=== PATIENT | female | born 1950 | race Caucasian/White ===

== ENCOUNTER 2016-10-26 12:47 | Emergency (ER) | payer MEDICARE, BC ==
[2016-10-26] MEDS ORDERED: Albuterol/Ipratropium 3.0-0.5 MG/3 ML Neb Soln NEB ONE (13:05)
[2016-10-26] MEDS ORDERED: diphenhydrAMINE 50 MG Cap PO ONE (13:13)
[2016-10-26 14:15] VITALS: BP 149/80
--- NOTE | 2016-10-27 11:41 | ER ---
DATE SEEN: 10/26/2016 TIME SEEN: The patient was seen at 1300 hours. CHIEF COMPLAINT: Shortness of breath. 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 The office is an old building and has extensive mold in the basement. She has noted increased shortness of breath last week and on and off for the last 6 months. She noted 6 months ago, she had eczema and she was told by the outside sales executive it was related to an infection, possibly fungal infection. She notes she has had on and off problems with her lungs for the last 2 years. She has been working at this microfilm operator's office for 4 years. 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 She was exposed to a lot of dust. More recently, on 10/21/2016, she was started on prednisone because of lung involvement. The MD thought she had a flare in her allergies. She has mild nasal congestion. The patient has "hay fever" which she notes occurs when she smells roses and lilacs and gets exposed to thimerosal intranasally. Her "hay fever" manifests itself as "increased shortness of breath." She has never had asthma. No recent coughing. The patient denies dyspnea on exertion except when she walks a long distance, walks fast, or goes up the stairs. She noted today when she was lifting a laundry basket; bending over and lifting it up, she got short of breath. No recent fevers. No productive cough. No chest pain. No irregular heartbeat. No heart attack. No previous history of myocardial infarction, hypertension, or other serious illnesses. REVIEW OF SYSTEMS: Otherwise, negative except for noted above. MEDICATIONS: 1. Zyrtec daily year round. 2. Multivitamins. 3. She had recently started prednisone 10/21/2016, 20 mg a day. ALLERGIES: Erythromycin, penicillin, and tetracycline. PHYSICAL EXAMINATION: VITAL SIGNS: Blood pressure 149/80, heart rate 92, respirations 18, and oxygen saturation 92%. With exertion, the oxygen saturation does go down to 89% with minimal exertion in the room. BMI is 27.0 kg/m2. GENERAL: A pleasant woman appropriately dressed, in no acute distress. Well muscled and well nourished. HEENT: Without abnormality. TMs negative. Pharynx without abnormality. NECK: Supple. No thyromegaly. No masses in neck. No cervical adenopathy. Transient, trace jugular venous distention. It is not persistent and is only noted when she lays down and semi-elevates her neck and chest. LUNGS: No intercostal retraction. No accessory muscle use. Rales in the bases posterior and inferior one half of the right and left lung base. Occasional rales in anterior lung bases. HEART: S1, S2. No murmur. No irregular rate or rhythm. ABDOMEN: Soft. No guarding. No hepatosplenomegaly. EXTREMITIES: Without edema. NEUROLOGIC: Not performed. The patient is alert and strength in upper and lower extremities. IMAGING: Chest x-ray reveals infiltrates, fibrous stranding left and right lung bases. Heart is slightly increased size. LABORATORY STUDIES: White count 10,500, PMNs 84, lymphocytes 13, monos 3, platelets 146,000, and hemoglobin 14.5. D-dimer is slightly elevated at 431 (for age is not elevated and could be considered normal), BUN and creatinine ratio is slightly increased 24 with a GFR greater than 60 and glucose 154. AST trace elevated at 31 and ALT 46. Troponin less than 0.01. ASSESSMENT: 1. The patient probably has a fungal mediated infiltrate and/or bacterial infiltrate. Plan is to treat her with Levaquin 500 mg daily for 10 days. Prescription written. If it does not get better, consider fungal workup. At this point, she has a fungal blood test to screen for Aspergillus, coccidioidomycosis, histoplasmosis, and blastomycosis. Culture results pending. She has allergy history. 2. She has nasal turbinate swelling moderate and also mild shiners all suggesting a allergic mediated process. 3. No evidence for sinusitis presently on clinical examination. No tenderness of sinuses maxillary or frontal. 4. Allergies to erythromycin, penicillin, and tetracycline. 5. History of eczema in the past and was seen by a outside sales executive. PLAN: 1. Treat empirically for potential infection even though she has minimally elevated white count. Use Levaquin 500 mg 1 tablet daily 10 tablets. 2. Follow up with doctor in a week. 3. If she has respiratory symptoms that are not improved, then consider Pulmonology consultation. She may need EGD endoscopy and or bronchoscopy/ culture of the lungs if pulm,onary process not get better. 4. I did not do a TB skin test. Probability of TB is low, but may need to be considered if she does not improved or returns next week for the same symptoms. 5. Mildly overweight. 6. Mild hyperglycemia. 7. Negative troponin. No evidence for myocardial ischemia. 8. Neutrophilic leukocytosis. The patient also given prescription in addition to Levaquin for 10 days, a prescription for Florastor. She currently uses [id number] probiotics and she can use these - does not need to use the Florastar prescription. /[id number] [address]
--- NOTE | 2016-10-30 13:54 | CR ---
INDICATION: Short of breath with exertion x1 week, probably allergy mediated. CHEST: Two PA views and a lateral view of the chest were obtained 10/26/2016. No comparisons were available. A poor inspiration is noted. Patchy infiltration is scattered throughout the lungs, predominantly in the mid to lower lung rviera and may be on the basis of a process such as aspiration pneumonia or other pneumonia. Fibrosis could also be present. No gross consolidating pneumonia or large effusion could be identified. The heart did not appear enlarged. The aorta is only minimally tortuous. Dextroconvex scoliosis of the upper middle thoracic spine is noted. Demineralization of the spine is suggested, compatible with osteoporosis and should be correlated clinically. IMPRESSION: 1. Cannot exclude pneumonia, possibly aspiration, and/or fibrosis. 2. Osteoporosis. 3. Scoliosis. MTDD
--- NOTE | 2016-11-14 11:58 | ER ---
DATE SEEN: 10/26/2016 LABORATORY DATA: The patient had fungal studies for coccidioidomycosis, blastomycosis, Aspergillus, and histoplasmosis. All these tests were performed by complement fixation. Fungal antibody by complement fixation less than 1:2. A titer as low as 1:2 may indicate past infection or self-limited disease. As long as it is not greater than or equal to 1:32, there is no suggestion of disseminated infection. Blastomycosis antibody by complement fixation, the patient's test result less than 1:8. Less than 40% of patients have positive test when active disease is present. Cross reactions occur between histoplasmosis and coccidioidomycosis. Conclusion: Antibody titer not abnormal. Histoplasmosis antibody by complement fixation, the patient's test was less than 1:8. Reference range is less than 1:8. This is considered low titer and not abnormal. Aspergillus by complement fixation, the test result less than 1:8. Negative test does not exclude infection in immunocompromised patients. If necessary, repeat test in 3 weeks. CONCLUSION: All these tests for coccidioidomycosis, blastomycosis, histoplasmosis, and Aspergillus are negative. CONCLUSION: No clear evidence for fungal disease as a cause of the patient's pulmonary symptoms. /[id number] [address] [facility]
== END 2016-10-26 14:45 | disposition home or self-care (01) ==
LOC: FB.ED 12:47
DX: R91.8 Other nonspecific abnormal finding of lung field (principal); E66.3 Overweight; R73.9 Hyperglycemia, unspecified; D72.828 Other elevated white blood cell count; Z79.899 Other long term (current) drug therapy; Z88.0 Allergy status to penicillin; Z88.1 Allergy status to other antibiotic agents
CPT/HCPCS: 36415; 71020; 80053; 84484; 85025; 85379; 86606; 86612; 86635; 86698; 94664; 99283; A9270; J7620

== ENCOUNTER 2018-08-04 15:41 | Inpatient (IN) | payer MEDICARE, BC ==
--- NOTE | 2018-08-04 16:16 | EDM.PDOC ---
ED HPI GENERAL MEDICAL PROBLEM - General Stated Complaint: TROUBLE BREATHING Time Seen by Provider: 08/04/18 15:45 Source of Information: Reports: Patient, Family History Limitations: Reports: No Limitations - History of Present Illness INITIAL COMMENTS - FREE TEXT/NARRATIVE: c/o sob x 1w went to [facility] 7d ago, saw Karli with c/o sob and new onset rhinorrhea, tx Ceftin without benefit, returned 2d ago and changed to Cefdinir still with rhinorrhea, does not think she has had a f/c/d has interstitial pul fibrosis, on no HFA, no nebs, on home O2 at nite since Dec master certified rv technician is Dr Ortiz, last saw 2w ago, has appointment in September at September for a 2nd opinion lives alone, dtr came for a visit today and pt "was blue" with PO in 70s and RR 30 PO 89% on 2 l/min here, inc'd to 93% on 4 l/min still feeling weak, no pain denies prior CV problems - Related Data Allergies Allergy/AdvReac Type Severity Reaction Status Date / Time erythromycin base Allergy Respiratory Verified 08/04/18 16:59 Distress Penicillins Allergy Respiratory Verified 08/04/18 16:59 Distress Tetracyclines Allergy Respiratory Verified 08/04/18 16:59 Distress Home Meds: Home Meds Cetirizine HCl/Pseudoephedrine [ZyrTEC-D] 1 tab PO Q12H 10/26/16 [History] Multivitamin [Multivitamins] 1 each PO DAILY 10/26/16 [History] Cefdinir [Omnicef] 300 mg PO Q12HR 08/04/18 [History] Fluticasone Propionate [Flonase Allergy Relief] 9.9 ml NS ASDIRECTED 08/04/18 [ History] predniSONE [Prednisone] 5 mg PO DAILY 08/04/18 [History] ED ROS GENERAL - Review of Systems Review Of Systems: See Below Constitutional: Reports: No Symptoms HEENT: Reports: No Symptoms Respiratory: Reports: Shortness of Breath Cardiovascular: Reports: No Symptoms Endocrine: Reports: No Symptoms GI/Abdominal: Reports: No Symptoms : Reports: No Symptoms Musculoskeletal: Reports: No Symptoms Skin: Reports: No Symptoms Neurological: Reports: No Symptoms Psychiatric: Reports: No Symptoms Hematologic/Lymphatic: Reports: No Symptoms Immunologic: Reports: No Symptoms ED EXAM, GENERAL - Physical Exam Exam: See Below Exam Limited By: No Limitations General Appearance: Alert, WD/WN, Mild Distress Ears: Normal External Exam Nose: Normal Inspection, Normal Mucosa, No Blood Throat/Mouth: Normal Inspection, Normal Lips, Normal Teeth, Normal Gums, Normal Oropharynx, Normal Voice, No Airway Compromise Head: Atraumatic, Normocephalic Neck: Normal Inspection, Supple, Non-Tender, Full Range of Motion Respiratory/Chest: Other (fair AE, symmetric, rales at L mid lung posteriorly, no true wheeze, no inc'd exp phase, talks 6-8 word sentences with just slight dyspnea, no cough observed, no retractions, using accessory muscles) Cardiovascular: Regular Rate, Rhythm, No JVD, No Murmur, No Rub GI/Abdominal: Soft, Non-Tender, No Distention Back Exam: Normal Inspection, Full Range of Motion, NT Extremities: Normal Inspection, Normal Range of Motion, Non-Tender, No Pedal Edema Neurological: Alert, Oriented, CN II-XII Intact, Normal Cognition, No Motor/ Sensory Deficits Psychiatric: Normal Affect, Normal Mood Skin Exam: Warm, Dry, Intact, Normal Color, No Rash Lymphatic: No Adenopathy Course - Vital Signs Last Recorded V/S: Last Vital Signs Temp 36.5 C 08/04/18 15:41 Pulse 114 H 08/04/18 15:41 Resp 20 08/04/18 15:41 BP 146/75 H 08/04/18 15:41 Pulse Ox 93 L 08/04/18 15:41 - Orders/Labs/Meds Orders: Active Orders 24 hr Category Date Time Status Admission Status [Patient Status] [ADT] Routine ADT 08/04/18 17:18 Ordered EKG Documentation Completion [RC] ASDIRECTED Care 08/04/18 16:08 Ordered Chest 2V [CR] Stat Exams 08/04/18 16:06 Ordered EKG 12 Lead [EK] Routine Ther 08/04/18 16:06 Ordered Labs: Laboratory Tests 08/04/18 08/04/18 08/04/18 Range/Units 16:20 16:20 16:20 WBC 14.3 H (4.5-12.0) X10-3/uL RBC 4.65 (3.23-5.20) x10(6)uL Hgb 14.5 (11.5-15.5) g/dL Hct 42.7 (30.0-51.3) % MCV 91.7 (80-96) fL MCH 31.1 (27.7-33.6) pg MCHC 33.9 (32.2-35.4) g/dL RDW 11.2 L (11.5-15.5) % Plt Count 475 H (125-369) X10(3)uL MPV 6.8 L (7.4-10.4) fL Neut % (Auto) 78.2 (46-82) % Lymph % (Auto) 8.5 L (13-37) % [place] % (Auto) 9.1 (4-12) % Eos % (Auto) 3 (1.0-5.0) % Baso % (Auto) 1 (0-2) % Neut # (Auto) 11.2 H (1.6-8.3) # Lymph # (Auto) 1.2 (0.6-5.0) # [place] # (Auto) 1.3 (0.0-1.3) # Eos # (Auto) 0.4 (0.0-0.8) # Baso # (Auto) 0.2 (0.0-0.2) # POC VBG pH POC VBG pCO2 POC VBG HCO3 POC VBG Total CO2 POC VBG Base Excess Sodium 137 (135-145) mmol/L Potassium 4.2 (3.5-5.3) mmol/L Chloride 98 L (100-110) mmol/L Carbon Dioxide 28 (21-32) mmol/L BUN 18 (7-18) mg/dL Creatinine 0.7 (0.55-1.02) mg/dL Est Cr Clr Drug Dosing TNP Estimated GFR (MDRD) > 60 (>60) BUN/Creatinine Ratio 25.7 H (9-20) Glucose 111 (80-116) mg/dL Calcium 9.1 (8.6-10.2) mg/dL Total Bilirubin 0.5 (0.1-1.3) mg/dL AST 31 H (5-25) IU/L ALT 39 H (12-36) U/L Alkaline Phosphatase 96 (56-112) IU/L Troponin I < 0.017 L (<0.017-0.056) ng/mL C-Reactive Protein 16.8 H* (0.5-0.9) mg/dL NT-Pro-B Natriuret Pep (<=125) pg/mL Total Protein 7.8 (6.0-8.0) g/dL Albumin 3.4 (3.2-4.6) g/dL Globulin 4.4 g/dL Albumin/Globulin Ratio 0.8 Urine Color (YELLOW) Urine Appearance (CLEAR) Urine pH (5.0-6.5) Ur Specific [place] (1.010-1.025) Urine Protein (NEGATIVE) mg/dL Urine Glucose (UA) (NORMAL) mg/dL Urine Ketones (NEGATIVE) mg/dL Urine Occult Blood (NEGATIVE) Urine Nitrite (NEGATIVE) Urine Bilirubin (NEGATIVE) Urine Urobilinogen (NEGATIVE) mg/dL Ur Leukocyte Esterase (NEGATIVE) Urine RBC (0-5) Urine WBC (0-5) Ur Squamous Epith Cells (NS,R,O) Urine Bacteria (NS) Hyaline Casts (NS) Urine Mucus (NS) 08/04/18 08/04/18 08/04/18 Range/Units 16:20 16:20 16:28 WBC (4.5-12.0) X10-3/uL RBC (3.23-5.20) x10(6)uL Hgb (11.5-15.5) g/dL Hct (30.0-51.3) % MCV (80-96) fL MCH (27.7-33.6) pg MCHC (32.2-35.4) g/dL RDW (11.5-15.5) % Plt Count (125-369) X10(3)uL MPV (7.4-10.4) fL Neut % (Auto) (46-82) % Lymph % (Auto) (13-37) % [place] % (Auto) (4-12) % Eos % (Auto) (1.0-5.0) % Baso % (Auto) (0-2) % Neut # (Auto) (1.6-8.3) # Lymph # (Auto) (0.6-5.0) # [place] # (Auto) (0.0-1.3) # Eos # (Auto) (0.0-0.8) # Baso # (Auto) (0.0-0.2) # POC VBG pH Cancelled 7.38 POC VBG pCO2 Cancelled 36.9 L POC VBG HCO3 Cancelled 21.8 L POC VBG Total CO2 Cancelled 23 L POC VBG Base Excess Cancelled -3 L Sodium (135-145) mmol/L Potassium (3.5-5.3) mmol/L Chloride (100-110) mmol/L Carbon Dioxide (21-32) mmol/L BUN (7-18) mg/dL Creatinine (0.55-1.02) mg/dL Est Cr Clr Drug Dosing Estimated GFR (MDRD) (>60) BUN/Creatinine Ratio (9-20) Glucose (80-116) mg/dL Calcium (8.6-10.2) mg/dL Total Bilirubin (0.1-1.3) mg/dL AST (5-25) IU/L ALT (12-36) U/L Alkaline Phosphatase (56-112) IU/L Troponin I (<0.017-0.056) ng/mL C-Reactive Protein (0.5-0.9) mg/dL NT-Pro-B Natriuret Pep 142 H (<=125) pg/mL Total Protein (6.0-8.0) g/dL Albumin (3.2-4.6) g/dL Globulin g/dL Albumin/Globulin Ratio Urine Color (YELLOW) Urine Appearance (CLEAR) Urine pH (5.0-6.5) Ur Specific [place] (1.010-1.025) Urine Protein (NEGATIVE) mg/dL Urine Glucose (UA) (NORMAL) mg/dL Urine Ketones (NEGATIVE) mg/dL Urine Occult Blood (NEGATIVE) Urine Nitrite (NEGATIVE) Urine Bilirubin (NEGATIVE) Urine Urobilinogen (NEGATIVE) mg/dL Ur Leukocyte Esterase (NEGATIVE) Urine RBC (0-5) Urine WBC (0-5) Ur Squamous Epith Cells (NS,R,O) Urine Bacteria (NS) Hyaline Casts (NS) Urine Mucus (NS) 08/04/18 Range/Units 16:51 WBC (4.5-12.0) X10-3/uL RBC (3.23-5.20) x10(6)uL Hgb (11.5-15.5) g/dL Hct (30.0-51.3) % MCV (80-96) fL MCH (27.7-33.6) pg MCHC (32.2-35.4) g/dL RDW (11.5-15.5) % Plt Count (125-369) X10(3)uL MPV (7.4-10.4) fL Neut % (Auto) (46-82) % Lymph % (Auto) (13-37) % [place] % (Auto) (4-12) % Eos % (Auto) (1.0-5.0) % Baso % (Auto) (0-2) % Neut # (Auto) (1.6-8.3) # Lymph # (Auto) (0.6-5.0) # [place] # (Auto) (0.0-1.3) # Eos # (Auto) (0.0-0.8) # Baso # (Auto) (0.0-0.2) # POC VBG pH POC VBG pCO2 POC VBG HCO3 POC VBG Total CO2 POC VBG Base Excess Sodium (135-145) mmol/L Potassium (3.5-5.3) mmol/L Chloride (100-110) mmol/L Carbon Dioxide (21-32) mmol/L BUN (7-18) mg/dL Creatinine (0.55-1.02) mg/dL Est Cr Clr Drug Dosing Estimated GFR (MDRD) (>60) BUN/Creatinine Ratio (9-20) Glucose (80-116) mg/dL Calcium (8.6-10.2) mg/dL Total Bilirubin (0.1-1.3) mg/dL AST (5-25) IU/L ALT (12-36) U/L Alkaline Phosphatase (56-112) IU/L Troponin I (<0.017-0.056) ng/mL C-Reactive Protein (0.5-0.9) mg/dL NT-Pro-B Natriuret Pep (<=125) pg/mL Total Protein (6.0-8.0) g/dL Albumin (3.2-4.6) g/dL Globulin g/dL Albumin/Globulin Ratio Urine Color Yellow (YELLOW) Urine Appearance Clear (CLEAR) Urine pH 5.0 (5.0-6.5) Ur Specific [place] 1.020 (1.010-1.025) Urine Protein Trace (NEGATIVE) mg/dL Urine Glucose (UA) Normal (NORMAL) mg/dL Urine Ketones 150 H (NEGATIVE) mg/dL Urine Occult Blood Trace (NEGATIVE) Urine Nitrite Negative (NEGATIVE) Urine Bilirubin Small H (NEGATIVE) Urine Urobilinogen Normal (NEGATIVE) mg/dL Ur Leukocyte Esterase Negative (NEGATIVE) Urine RBC 0-5 (0-5) Urine WBC 0-5 (0-5) Ur Squamous Epith Cells Moderate H (NS,R,O) Urine Bacteria Few H (NS) Hyaline Casts Few H (NS) Urine Mucus Few H (NS) - Re-Assessments/Exams Free Text/Narrative Re-Assessment/Exam: 08/04/18 17:28 CxR with infiltrate in L med lung field, same location as the rales WBC 14.3, plt 475 and CRP 16, all c/w infection BNP 142 c/w heart strain, EKG with ST 112, old IWMI, no comparison echo Jan 2017 with LV diastolic dysfunction Grade 1, EF 50-55%, normal wall function, normal RV systolic function labs and XR and PE all c/w pneumonia will change antbx to Zosyn and vanco to cover Pseudomonas, MRSA and anaerobes dtr agrees to admission, pt reluctantly agrees Departure - Departure Time of Disposition: 17:32 Disposition: DC/Tfer to Acute Hospital 02 Condition: Fair Clinical Impression: Left lower lobe pneumonia, Leukocytosis, Elevated brain natriuretic peptide ( BNP) level, Elevated C-reactive protein (CRP), Sinus tachycardia - Discharge Information *PRESCRIPTION DRUG MONITORING PROGRAM REVIEWED*: Not Applicable *COPY OF PRESCRIPTION DRUG MONITORING REPORT IN PATIENT REBECCA: Not Applicable Referrals: Jossy Borges PRIMARY SUBSTANCE ABUSE COUNSELOR [Primary Care Provider] - - My Orders Last 24 Hours: My Active Orders 08/04/18 16:06 Chest 2V [CR] Stat EKG 12 Lead [EK] Routine 08/04/18 16:08 EKG Documentation Completion [RC] ASDIRECTED 08/04/18 17:18 Admission Status [Patient Status] [ADT] Routine - Assessment/Plan Last 24 Hours: My Active Orders 08/04/18 16:06 Chest 2V [CR] Stat EKG 12 Lead [EK] Routine 08/04/18 16:08 EKG Documentation Completion [RC] ASDIRECTED 08/04/18 17:18 Admission Status [Patient Status] [ADT] Routine
[2018-08-04] MEDS ORDERED: Acetaminophen 325 MG Tab PO PRN (17:36)
[2018-08-04] MEDS ORDERED: Ondansetron 4 MG/2 ML SDV IV PRN (17:36)
[2018-08-04] MEDS ORDERED: Ibuprofen 600 MG Tab PO PRN (17:36)
[2018-08-04] MEDS ORDERED: Magnesium Hydroxide 400 MG/5 ML Susp 30 ML Cup PO PRN (17:36)
[2018-08-04] MEDS ORDERED: Zolpidem 5 MG Tab PO PRN (17:36)
[2018-08-04] MEDS ORDERED: [UNRECOGNIZED DRUG - REMARK] NS SCH (18:00)
[2018-08-04] MEDS ORDERED: Levofloxacin 750 MG Tab PO SCH (18:15)
[2018-08-04] MEDS: Enoxaparin 40 MG/0.4 ML Syringe SUBCUT SCH (18:31)
[2018-08-04] MEDS: Albuterol 0.083% 2.5 MG/3 ML Neb Soln NEB SCH (18:31)
[2018-08-04] MEDS: methylPREDNISolone Sodium Succinate 125 MG/2 ML SDV IVPUSH SCH (18:31)
[2018-08-04] MEDS ORDERED: Vancomycin 1 GM SDV ONE (19:11)
[2018-08-04] MEDS: Sodium Chloride 0.9% 10 ML Syringe FLUSH PRN ×2 (19:13→21:52)
[2018-08-04] MEDS: Saccharomyces Boulardii (Probiotic) 250 MG Cap PO SCH (21:04)
[2018-08-05] MEDS: Albuterol 0.083% 2.5 MG/3 ML Neb Soln NEB SCH ×4 (00:17→18:07)
[2018-08-05] MEDS: methylPREDNISolone Sodium Succinate 125 MG/2 ML SDV IVPUSH SCH ×3 (01:06→18:06)
[2018-08-05] MEDS: Sodium Chloride 0.9% 10 ML Syringe FLUSH PRN ×2 (01:08→06:52)
[2018-08-05] MEDS ORDERED: Vancomycin 1 GM SDV ONE (06:33)
[2018-08-05] MEDS: Saccharomyces Boulardii (Probiotic) 250 MG Cap PO SCH (08:40)
[2018-08-05] MEDS ORDERED: Multivitamin Tab PO SCH (09:00)
--- NOTE | 2018-08-05 10:42 | CR ---
INDICATION: Shortness of breath, crackles at left mid lung. CHEST: PA and lateral views of the chest were obtained 08/04/18 and compared with 10/26/16, revealing only slightly heavier markings in the right mid lung field and right lung base, as well as the upper lung field on the right, likely on the basis of pulmonary fibrosis or possibly recurrent patchy pneumonia. On the left, however, there is a significant increase in infiltration in the left mid lung field with heavy markings in the upper lung field and at the left lung base also seen. Findings may be on the basis of new acute pneumonia. Would question the possibility of aspiration pneumonia with this appearance. Other etiology such as neoplasia is felt to be less likely but cannot be excluded. The heart appeared prominent in size and likely is enlarged to a moderate degree. The aorta is tortuous with calcification in the arch and descending portion. Somewhat diminished bone density raises question of osteoporosis - correlate clinically. IMPRESSION: 1. Bilateral infiltration, left much greater than right, and with definite new infiltrate compared with 2017 on the left. Findings may be on the basis of aspiration pneumonia and pulmonary fibrosis but should be correlated clinically. Other etiology such as neoplasia cannot be entirely excluded, especially with this patients history of smoking. 2. ASHD with cardiomegaly. 3. Possible osteoporosis - correlate clinically. Copy faxed to [facility] on 08/05/18 at 1045 hours. [facility]
--- NOTE | 2018-08-05 13:22 | HP ---
ADMISSION DATE: 08/04/2018 REASON FOR VISIT: Complicated respiratory difficulty, interstitial pulmonary fibrosis. HISTORY OF PRESENT ILLNESS: Atul Meyer is a 67-year-old, female, [facility] resident, was seen at [facility] on the evening of 08/04/2017. She was seen by Dr. Upton. She has had a recent complicated health history. She was seen at [facility] a week ago, given an oral antibiotic Ceftin, lack of response 2 days prior, switched to cefdinir. Cough, cold, minimal secretions. Absent fever but some lethargy. Has history of pulmonary interstitial fibrosis, on O2 at home. Dr. Ortiz, integration project manager at [facility], primary lung provider of record. Has an upcoming appointment at [facility] for a second opinion in mid September. MEDICATIONS ON ADMISSION: 1. Cefdinir 300 mg q.12 hours. 2. Previous Ceftin. 3. Prednisone 5 mg one daily. 4. Flonase. 5. Multivitamin. ALLERGIES: Allergic to erythromycin, penicillins, and tetracyclines with respiratory distress. PAST MEDICAL HISTORY: Significant for most recent diagnosis of interstitial pulmonary fibrosis. She has had tonsillectomy as a child, one section, and a previous lumbar microdiskectomy. She has had a previous left ankle fracture with booting only. No other operative procedures, hospitalizations, unusual childhood diseases, major injuries, or fractures. GYNECOLOGIC HISTORY: 2, para 2, postmenopausal female. One . 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 Two children, son and daughter, and no grandchildren. Remote smoker. No alcohol consumption. No illicit drug use. FAMILY HISTORY: Negative for early heart disease, diabetes mellitus, or inheritable cancers. REVIEW OF SYSTEMS: Please see HPI. EYES: Sees well. EARS: Hears well. OROPHARYNX: Intact dentition. CARDIORESPIRATORY: Please see HPI. GASTROINTESTINAL: Regular predictable stools, no blood in stools. GENITOURINARY: Good voiding pattern. No blood in urine. SKIN: No open sores or lesions. ENDOCRINE: No excessive thirst, urination. ALLERGIES: Chronic cough present. PSYCHIATRIC: Mood stable. PHYSICAL EXAMINATION: VITAL SIGNS: 36.4, 115/72, 18 with 91% on 2 L per exam. GENERAL: Young lady, seen on the morning of 08/05/2018, able to give a good history. HEENT: Reveal funduscopic benign. Conjunctivae clear. Bright tympanic membranes. Clear nasal discharge. Mouth and oropharynx clear. Tongue midline. Good gag reflex. Absent tonsils. NECK: Benign. Thyroid small. No adenopathy. No carotid bruits. No JVD. CHEST: Diffuse wheezing, coarse rhonchi. HEART: No ectopy or significant murmur. BREASTS: Symmetric, parous without masses. ABDOMEN: Benign, no surgical scars. GENITOURINARY/RECTAL: Deferred. EXTREMITIES: Well perfused. BACK: Surgical scar identified. LABORATORY STUDIES: White count 14,300 on admission, repeat 7,500; hemoglobin 14.5 and 14.3 respectively, normal indices; slightly elevated platelets at 475,000 and 479,000. PH blood gas 7.38. Electrolytes satisfactory. Troponin negative x2. CRP 16.8. Urinalysis unremarkable. Radiograph difficult to interpret but suspicion for right middle lobe pneumonia. ASSESSMENT: Right middle lobe pneumonia. PLAN: The patient looks better this morning. Presently on IV levofloxacin, IV vancomycin, supplemental O2, intravenous corticosteroids, and intervention and care. We will consult with Dr. Ortiz, Pulmonary Medicine, [facility]. /[id number] [place]
[2018-08-05 16:51] VITALS: BP 114/68
[2018-08-05] MEDS ORDERED: ALPRAZolam 0.25 MG Tab PO ONE (16:51)
[2018-08-05] MEDS ORDERED: Levofloxacin/Dextrose 5%-Water 500 MG in Premix Bag 1 BAG IV SCH (18:00)
[2018-08-05] MEDS: Enoxaparin 40 MG/0.4 ML Syringe SUBCUT SCH (18:07)
--- NOTE | 2018-08-06 14:20 | DISCH ---
DISCHARGE DATE: 08/05/2018 DISCHARGE DIAGNOSIS: Acute severe respiratory distress secondary to interstitial pulmonary lung disease. HOSPITAL COURSE: Atul Meyer is a 67-year-old, female, admitted with profound hypoxia. O2 saturations in the 50s. On admission, she was given appropriate supplemental O2, intravenous corticosteroids, oral Levaquin, IV vancomycin, and observed overnight. Saturations were reasonable. Chest x-ray revealed a questionable aspiration pneumonia. I had spoken with Dr. Mercer, her tugboat engineer from [facility] in [place]. He was able to review the chest x-ray, clinical findings, and agreed with our intervention of IV steroids, supportive management, and transition to oral antibiotics and steroids 40 mg with reducing doses. Through the course of mid day, increasing concerns nursing staff-ortez. O2 saturations, with simply going from bed to chair, dropped to 50%. Profoundly symptomatic. She was able to, with some concerted effort, increase her saturations back up. Nursing staff appropriately concerned about general decline in well being and potential for intubation and other treatment requirements. Given those concerns, potential for intubation and more profound intervention, I spoke with Dr. Del Angel at [facility] in [place], who agreed to accept in transfer. PHYSICAL EXAMINATION: VITAL SIGNS: Stable. HEENT: Mouth and oropharynx clear. NECK: Benign. CHEST: Diffuse wheezing, coarse rhonchi. HEART: Distant heart sounds. ABDOMEN: Benign. DIAGNOSIS: Declining respiratory well being. PLAN: Discharge plan is to [facility]. 45 minutes of care, intervention, treatment, and examination prior to discharge. /[id number] /FOREST
== END 2018-08-05 18:25 | DRG 179 ==
LOC: FB.ED 15:41 → FB.MS 17:18
PROVIDERS: ADMIT Emergency Medicine; ATTEND Family Medicine
DX: J18.1 Lobar pneumonia, unspecified organism (principal); J69.0 Pneumonitis due to inhalation of food and vomit; R06.03 Acute respiratory distress; R09.02 Hypoxemia; Z99.81 Dependence on supplemental oxygen; Z87.891 Personal history of nicotine dependence; J84.10 Pulmonary fibrosis, unspecified; R06.00 Dyspnea, unspecified; R79.89 Other specified abnormal findings of blood chemistry; R79.82 Elevated C-reactive protein (CRP); R00.0 Tachycardia, unspecified; D72.829 Elevated white blood cell count, unspecified; Z79.52 Long term (current) use of systemic steroids; Z88.1 Allergy status to other antibiotic agents; Z88.0 Allergy status to penicillin
CPT/HCPCS: 36415; 71046; 80048; 80053; 81001; 82803; 83880; 84484; 85025; 86140; 87804; 87804-59; 93005; 94640; 99285-25; A9270-GY; J1650; J1956; J2930; J3370; J7050